=== PATIENT | female | born 1955 | race Caucasian/White ===

== ENCOUNTER → 2018-04-18 | Outpatient (CLI) | payer BC ==
[~2018-04-18] MED LIST: ASCO1TAB PO; CALC-547 PO
--- NOTE | 2018-04-18 10:56 | RADIOLOGY IMAGING REPORT ---
FACILITY: [facility] - [place] PATIENT NAME: Rossy Sanchez : 1955 MR: [id number] V: [id number] EXAM DATE: ORDERING PHYSICIAN: TRACE ARTHUR TECHNOLOGIST: Location: [facility] - [place] Patient: Rossy Sanchez : 1955 Visit/Account:[id number] Date of Sevice: 04/18/2018 DEXA Scan Clinical history: Screening. Comparison: DEXA scan from 11/01/2009. LUMBAR SPINE: The bone mineral density (BMD) measured from L1-L4 correlates with a Z-score of 0.1 and a T-score of -1.8 which is osteopenia as defined by the World Health Organization. The corresponding risk of frac ture in the lumbar spine is 3-4 times increased compared with a young adult reference population. Th is value has decrease by 9.5 % since the prior study. More than 5% change is considered significant. HIP: Bone mineral density (BMD) measured in the LEFT total hip region correlates with a Z-score -0.5 and a T-score of -1.8 which is osteopenia as defined by the World Health Organization. The corresponding risk of fracture in the hip is 3-4 times increased compared to a young adult reference population. Th is value has decrease by 9.6 % since the prior study. More than 5% change is considered significant. T score left femoral neck -2 Bone mineral density (BMD) measured in the Femoral Neck region measures 0.766 g/cm?. IMPRESSION: 1. Lumbar spine: Osteopenia. There has been 9.5% decrease in the bone mineral density since the pre vious exam. 2. Left Total Hip: Osteopenia. There has been 9.6% decrease in the bone mineral density since the p revious exam. 3. Femoral Neck: Bone Mineral Density is g/cm? The next DEXA scan of this patient should include the following sites: L1-L4 and the left hip. FRAX? WHO Fracture Risk Assessment Tool link: <http://www.shef.ac.uk/FRAX/tool.jsp?locationValue=9> PLEASE NOTE: 1) The World Health Organization defines low BMD as follows: T-score Normal > -1 Osteopenia < -1 and > -2.5 Osteoporosis < -2.5 without fractures Established osteoporosis < -2.5 with fractures 2) In general, you may wish to consider: Diagnosis Treatment Follow-up DEXA Normal BMD Prevention 2-3 years Osteopenia Prevention/therapy 1-2 years Osteoporosis Therapy Yearly 3) Fracture risk estimated from the T-score is more accurate for vertebral fractures (often spontane ous) than for hip fractures. Report Dictated By: Angelina Jett MD at 04/18/2018 10:50 AM Report E-Signed By: Angelina Jett MD at 04/18/2018 10:52 AM WSN:[email or web address]
--- NOTE | 2018-04-18 14:55 | RADIOLOGY IMAGING REPORT ---
FACILITY: [facility] - [place], [place] PATIENT NAME: EWELINA SEO : [id number] MR: [id number] V: [id number] EXAM DATE: [id number] ORDERING PHYSICIAN: TRACE ARTHUR TECHNOLOGIST: Ana Crews PROCEDURE:BILATERAL DIGITAL SCREENING MAMMOGRAM WITH CAD ASSISTED INTERPRETATION & 3D TOMOSYNTHESIS COMPARISON:Prior mammograms 04/12/16, 12/02/13, 12/26/11. INDICATIONS:SCREENING FINDINGS: Moderately heterogeneous fibroglandular tissue is seen throughout the breasts. The parenchymal pattern has remained stable allowing for difference in mammographic technique & patient positioning. There is no evidence of malignant appearing mass, malignant appearing calcifications or other secondary sign of malignancy in either breast. DIAGNOSTIC CATEGORY 1--NEGATIVE. RECOMMENDATIONS: ROUTINE MAMMOGRAM AND CLINICAL EVALUATION. IMPRESSION: BIRADS 1: Negative. No significant abnormality is seen. Dictated by: Angelina Jett M.D. on 04/18/2018 at 10:21 Transcribed by: SALLIE on 04/18/2018 at 10:30 Approved by: Angelina Jett M.D. on 04/18/2018 at 14:53 [facility]
== END ==
LOC: MAMO 02:38
PROVIDERS: ATTEND Nurse Practitioner Psychiatric/Mental Health
DX: Z13.820 Encounter for screening for osteoporosis (principal); Z12.31 Encounter for screening mammogram for malignant neoplasm of breast; M85.80 Other specified disorders of bone density and structure, unspecified site
CPT/HCPCS: 77063; 77067; 77080